=== PATIENT | female | born 1960 | race African-American/Black ===

== ENCOUNTER 2018-01-02 06:10 | Emergency (ER) | payer OTHER ==
[~2018-01-02] VITALS: Ht 154.9 cm; Wt 70.8 kg
[2018-01-02 06:16] VITALS: Ht 154.9 cm; Wt 70.8 kg
[2018-01-02 08:54] VITALS: BP 145/81
== END 2018-01-02 08:54 | disposition home or self-care (01) ==
LOC: ED 06:10
DX: M25.512 Pain in left shoulder (principal); M25.552 Pain in left hip; M47.892 Other spondylosis, cervical region; I10 Essential (primary) hypertension; V47.5XXA Car driver injured in collision with fixed or stationary object in traffic accident, initial encounter; Y93.89 Activity, other specified; Y92.413 State road as the place of occurrence of the external cause; Y99.8 Other external cause status
CPT/HCPCS: Q0092